=== PATIENT | female | born 1975 | race Asian ===

== ENCOUNTER 2020-04-14 07:59 | Day surgery (SDC) | payer OTHER ==
[2020-04-14 08:09] LABS: Specific Gravity >= 1.030 (1.005-1.030)
[2020-04-14] MEDS ORDERED: CEFAZOLIN/SWI 1gm 1 GM/10 ML SYR ONE (08:27)
[2020-04-14] MEDS ORDERED: Ringers Lactate 1,000 ML IV ONE ×3 (08:27→09:05)
[2020-04-14] MEDS ORDERED: SCOPOLAMINE HYDROBROMIDE PATCH TD ONE (09:01)
[2020-04-14] MEDS ORDERED: CEFAZOLIN SODIUM 1 GM/VIAL ONE (09:04)
[2020-04-14] MEDS ORDERED: NS 0.9% VIAL 40 ML ONE (09:04)
[2020-04-14] MEDS ORDERED: GENTAMICIN SULF 80 MG/2ML INJ ONE (09:05)
[2020-04-14] MEDS ORDERED: LIDOCAINE 1% W/EPI 1:100,000 10 ML VIAL ONE (09:05)
[2020-04-14] MEDS ORDERED: BACITRACIN 50000 UNIT VIAL ONE (09:05)
[2020-04-14] MEDS ORDERED: Mastisol Adhesive Liq ONE (09:05)
[2020-04-14] MEDS ORDERED: MIDAZOLAM HCL 2 MG/2 ML INJ ONE (09:15)
[2020-04-14] MEDS ORDERED: FENTANYL CITR 250 MCG/5 ML ONE (09:15)
[2020-04-14] MEDS ORDERED: propofoL 200 MG/20 ML VIAL IV ONE (09:15)
[2020-04-14] MEDS ORDERED: dexAMETHasone 10 MG/ML VIAL ONE (09:15)
[2020-04-14] MEDS ORDERED: LIDOCAINE 2% MPF 5 ML VIAL ONE (09:15)
[2020-04-14] MEDS ORDERED: KETAMINE HCL 500 MG/5 ML VIAL ONE (09:16)
[2020-04-14] MEDS ORDERED: ROCURONIUM 50 MG/5 ML VIAL IV ONE (09:16)
[2020-04-14] MEDS ORDERED: ONDANSETRON 4 MG/2 ML VIAL ONE ×2 (09:16→15:15)
[2020-04-14] MEDS ORDERED: KETOROLAC 30 MG/ML INJ ONE (14:01)
[2020-04-14] MEDS ORDERED: MORPHINE 10 MG/ML VIAL ONE (14:03)
[2020-04-14] MEDS: HYDROMORPHONE HCL 1 MG/ML INJ ONE ×2 (15:00→15:05)
[2020-04-14 15:52] VITALS: TEMP 98.3
[2020-04-14] MEDS ORDERED: CODEINE 30MG/APAP 300MG TAB ONE (16:31)
--- NOTE | 2020-04-14 17:05 | OP ---
Surgeon: Wood Tang MD Preoperative Diagnosis: Breast enlargement. Postoperative Diagnosis: Breast enlargement. Procedure Performed: Breast reduction. Anesthesia: General. Procedure In Detail: After satisfactory induction of general anesthesia, the chest was prepped with DuraPrep and dry sterile drapes applied in the usual manner. A 45 template was used to outline the r ight and left breasts areola. Then, in the right breast, transverse curvilinear incision was made. The intervening skin was de-epithelialized with dermabrader and EpiCut. The flaps were elevated towa rds the sternum, clavicle, and anterior axillary line about 1.2 cm thick. Then, the inferior incisio n was made and then the deep tissue rotated into a cone after excess breast tissue laterally was humphrey susan. Conization was sewn with 2-0 PDS suture. Straps were elevated at 12 o'clock, 1:30, and 3 o'oswald ck positions and then the straps were woven in and out of the pectoralis major muscles back to base o f cone, tied themselves with 2-0 PDS suture. This was done for the 12 o'clock and 1:30 strap. The 3 o'clock strap was sewn over the sternum at 3 o'clock position with 2-0 Ethibond. Wound was carefull y stapled shut. The left side was done in a mirror-image manner and returned to the right side. We irrigated the wound with antibiotic solution. Electrocautery was used for hemostasis. Lateral dog e ars were excised. Wound was closed in layers 3-0 Vicryl subcu, 3-0 PDS running subcuticular tied fro m medial to lateral and lateral to medial tied in the vertical meridian of the breast. Left side was done in a mirror-image manner and then the patient was sat up. Site for new nipple-areolar complex was marked out. Tissue cored out, nipple-areolar complex delivered and sewn with interrupted 4-0 PDS followed by 4-0 PDS running subcuticular. Two LY drains had been sewn in place with 2-0 silk prior to closure. Amount removed from the right breast was 250 g, left breast 248 g. The patient tolerate d the procedure well. Dressings of tincture of benzoin, Steri-Strips, followed by Esmarch, fluffs, a nd [place] wrap. The patient tolerated the procedure well and returned to Recovery. GH/MODL Voice ID: [id number] Report ID: [id number]
[2020-04-14 18:04] VITALS: BP 118/69; O2SAT 100
== END 2020-04-14 17:30 | disposition home or self-care (01) ==
LOC: OR 07:59
PROVIDERS: ATTEND Specialist
PROC: 0HSV0ZZ Reposition Bilateral Breast, Open Approach (ICD-10-PCS; principal; 2020-04-14 09:00)
DX: N64.81 Ptosis of breast (principal)
CPT/HCPCS: 81025; 19316; J2704; J1580; J2250; J3010; J1100; J1170; J0690 ×2; J7120 ×3; J2405 ×2